=== PATIENT | female | born 1955 | race Native Hawaiian/Other Pacific Islander ===

== ENCOUNTER 2019-09-04 18:58 | Emergency (ER) | payer OTHER ==
[~2019-09-04] VITALS: Ht 162.6 cm; Wt 73.5 kg
[2019-09-04 21:07] LABS: PLATELET COUNT 237 K/uL (152-353)
[2019-09-04 21:10] LABS: POTASSIUM 3.7 mmol/L (3.6-5.2)
[2019-09-05 01:21] VITALS: BP 129/64; TEMP 98.8
== END 2019-09-05 01:22 | disposition home or self-care (01) ==
LOC: ED 18:58
PROVIDERS: Student in an Organized Health Care Education/Training Program
DX: R10.32 Left lower quadrant pain (principal)
CPT/HCPCS: 80053; 81000; 83690; 83735; 85027; 96360; 99284; Q9963

== ENCOUNTER 2020-12-30 07:17 | Emergency (ER) | payer OTHER ==
[~2020-12-30] VITALS: Ht 162.6 cm; Wt 77.1 kg
[2020-12-30 07:30] VITALS: BP 146/83; TEMP 97.9
[2020-12-30 08:42] LABS: PLATELET COUNT 232 K/uL (152-353)
[2020-12-30 08:52] LABS: POTASSIUM 4.2 mmol/L (3.6-5.2)
== END 2020-12-30 09:21 | disposition home or self-care (01) ==
LOC: ED 07:17
PROVIDERS: Family Medicine
DX: M62.830 Muscle spasm of back (principal)
CPT/HCPCS: 80053; 81000; 85027; 96372; 99283; J1885

== ENCOUNTER 2023-04-24 13:33 | Emergency (ER) | payer OTHER ==
[~2023-04-24] VITALS: Ht 162.6 cm; Wt 72.6 kg
[2023-04-24 14:17] LABS: PLATELET COUNT 309 K/uL (152-353)
[2023-04-24 14:30] LABS: POTASSIUM 4.4 mmol/L (3.6-5.2); SODIUM 136 mmol/L (136-145)
[2023-04-24 15:36] VITALS: BP 116/73; TEMP 97.7
== END 2023-04-24 15:42 | disposition home or self-care (01) ==
LOC: ED 13:33
PROVIDERS: Family Medicine
DX: S09.90XA Unspecified injury of head, initial encounter (principal); S39.012A Strain of muscle, fascia and tendon of lower back, initial encounter
CPT/HCPCS: 80053; 84484; 85027; 93005; 99283